=== PATIENT | male | born 1975 | race Two or more races ===

== ENCOUNTER → 2020-03-09 | Outpatient (CLI) | payer BC ==
--- NOTE | 2020-03-09 12:19 | KCIC ---
STUDY: MRI of the left knee without contrast INDICATION: Left knee pain. COMPARISON: Radiographic comparison from 08/15/2019 TECHNIQUE: Multiplanar MR imaging of the left knee performed without the use of intravenous or intra- articular contrast. FINDINGS: Menisci: Torn medial meniscus mainly from the mid body segment into the posterior horn with a degree of maceration along the body. Root insertions remain intact. Mild extrusion of the medial meniscus fr om the joint line in the setting of medial compartment arthrosis. No discrete lateral meniscal tear. Cruciate ligaments: Intact. Collateral ligaments: Intact. Tendons: Intact. Cartilage: Patellofemoral: Multifocal patellar chondrosis that is predominantly partial-thickness. A few areas o f fissuring and a potential delamination along the medial margin of the median ridge such as on image 12 series 3. Chondrosis at the mid to lower trochlear groove and medial trochlea. Lateral compartment: No focal chondral defect is identified. Heterogeneity at the far posterior nonwe ightbearing lateral femoral condyle is favored artifactual from pulsation. Medial compartment: High-grade, near full-thickness chondral loss involving both the weightbearing me dial femoral condyle and tibial plateau. Partial thickness chondrosis extends up the posterior nonwei ghtbearing medial femoral condyle. Bones: Reactive marrow edema at the far posterior medial tibial plateau deep to the meniscal root ins ertion. Faint subchondral edema at the periphery of the weightbearing medial compartment. Medial comp artment larger than patellofemoral compartment osteophytes. Normal TT-TG distance. Miscellaneous: Trace knee joint effusion. IMPRESSION: 1. Complex tearing of the medial meniscus mainly from the mid body segment into the posterior horn w ith a degree of maceration along the body. Mild extrusion of the medial meniscus from the joint line in the setting of joint space narrowing and multifocal high-grade chondrosis. The lateral meniscus is intact as are the cruciate and collateral ligaments. 2. Scattered partial thickness patellar more so than trochlear chondrosis. 3. Trace knee joint effusion. Electronically signed by: LIN SOLIS MD (03/09/2020 12:17 PM) [id number]
== END ==
LOC: KCIC MRI 07:57
PROVIDERS: ATTEND Orthopaedic Surgery
DX: S83.232A Complex tear of medial meniscus, current injury, left knee, initial encounter (principal); M25.762 Osteophyte, left knee; X58.XXXA Exposure to other specified factors, initial encounter; Y93.89 Activity, other specified; Y92.89 Other specified places as the place of occurrence of the external cause; Y99.8 Other external cause status
CPT/HCPCS: 73721